=== PATIENT | male | born 1970 | race Two or more races ===

== ENCOUNTER 2016-12-13 17:24 | Inpatient (IN) | payer MEDICAID ==
[~2016-12-13] VITALS: Ht 162.6 cm; Wt 74.8 kg
[~2016-12-13 17:24] MED LIST: AMLO5TAB2 PO; ASCO500T9 PO; ATOR40TA PO; Acetaminophen PO; CLOT30CR24 TP; HYDR-3326 PO; Isosorbide Mononitrate PO; LEVO25TA9 PO; Lisinopril PO; MAG-55 PO; MAGN400O58 PO; METO100T7 PO; SEVE800T PO; Silver Sulfadiazine TP; ZINC220C8 PO; Zolpidem Tartrate PO
[2016-12-13 17:55] LABS: BASOPHILS % (AUTO) 0.5 % (0.0-2.0); EOSINOPHILS # (AUTO) 0.2 K/uL (0.0-0.7); EOSINOPHILS % (AUTO) 2.3 % (0.0-7.0); HEMATOCRIT 34.8 % (40.0-50.0); LYMPHOCYTES # (AUTO) 0.8 K/uL (0.8-4.8); LYMPHOCYTES % (AUTO) 11.1 % (20.5-51.5); MEAN CORPUSCULAR HEMOGLOBIN 29.9 uug (27.0-31.0); MEAN CORPUSCULAR HGB CONC 32 g/dL (32.0-37.0); MEAN CORPUSCULAR VOLUME 94.7 fL (82.0-92.0); MONOCYTES # (AUTO) 0.5 K/uL (0.1-1.30); MONOCYTES % (AUTO) 6.1 % (0.0-11.0); NEUTROPHILS # (AUTO) 6.1 K/uL (1.8-8.9); PLATELET COUNT (AUTO) 156 K/uL (150-450); RED BLOOD CELL COUNT(AUTO) 3.68 MIL/uL (4.70-6.10); RED CELL DISTRIBUTION WIDTH 17.9 % (11.5-14.5); WHITE BLOOD COUNT (AUTO) 7.6 K/uL (4.0-11.2)
--- NOTE | 2016-12-13 18:06 | NUR ---
PT HYPOXIC ON RA AT THE TIME OF TRAIGE, NON REBREATHER PLACED BY JEWELRY REPAIRER WHICH IMPROVED THE SAT TO 100%.TRIED TI WEEN THE PT OFF THE NON REBREATHER TO SEE HOW THE PT DOES,
[2016-12-13 18:11] LABS: CALCIUM 10.8 mg/dL (8.5-10.1)
[2016-12-13 18:14] LABS: CREATININE 8.7 mg/dL (0.6-1.3); POTASSIUM 7.2 mmol/L (3.5-5.1)
[2016-12-13 18:16] LABS: ALBUMIN 3.5 g/dL (3.4-5.0); BILIRUBIN,DIRECT 0.2 mg/dL (0.0-0.2); BILIRUBIN,TOTAL 0.6 mg/dL (0.2-1.0); TOTAL PROTEIN, SERUM 7.6 g/dL (6.4-8.2)
[2016-12-13] MEDS ORDERED: DEXTROSE 50% 50 ML DISP.SYRIN ONE (18:28)
[2016-12-13] MEDS ORDERED: SODIUM POLYSTYRENE SULFONATE 15 G/60 ML LIQUID UDC ONE (18:28)
[2016-12-13] MEDS ORDERED: INSULIN REGULAR, HUMAN 300 UNIT/3 ML VIAL ONE (18:29)
[2016-12-13] MEDS ORDERED: FUROSEMIDE 20 MG/2 ML VIAL ONE (18:29)
[2016-12-13] MEDS ORDERED: SODIUM POLYSTYRENE SULFONATE 15 G/60 ML LIQUID UDC PO ONE (18:30)
[2016-12-13] MEDS ORDERED: ALBUTEROL SULFATE 2.5 MG/3 ML NEBU NEB ONE (18:30)
[2016-12-13] MEDS ORDERED: INSULIN REGULAR, HUMAN 300 UNIT/3 ML VIAL IV ONE (18:30)
[2016-12-13] MEDS ORDERED: DEXTROSE 50% 50 ML DISP.SYRIN IV ONE (18:30)
[2016-12-13] MEDS ORDERED: FUROSEMIDE 20 MG/2 ML VIAL IVP ONE (18:30)
[2016-12-13] MEDS ORDERED: ALBUTEROL SULFATE 2.5 MG/3 ML NEBU ONE (18:33)
[2016-12-13] MEDS ORDERED: NYST50002 TP (18:57)
[2016-12-13] MEDS ORDERED: MORPHINE SULFATE 4 MG/1 ML DISP.SYRIN IV ONE (19:00)
[2016-12-13] MEDS ORDERED: CALCIUM CHLORIDE 1 GM/10 ML DISP.SYRIN IVP ONE ×2 (19:00→19:02)
[2016-12-13] MEDS ORDERED: MORPHINE SULFATE 4 MG/1 ML DISP.SYRIN ONE (19:03)
--- NOTE | 2016-12-13 19:49 | NUR ---
Pt. admitted to [facility] , under care of Dr. Gold. Dx: Hyperkalemia. Belongs List completed
[2016-12-13 19:52] VITALS: BP 155/114
--- NOTE | 2016-12-13 19:52 | NUR ---
ADMITTED PT FROM ER VIA GURNEY, AWAKE, ALERT & ORIENTED W/ PERIODS OF FORGETFULNESS. PLACED ON O2 @ 2LNC W/ O2 SAT OF 98%. HEP LOCK INTACT & PATENT ON L HAND & RFA. C-SCOPE AFIB CONTROLLED. LYDIA CATH INTACT ON L SUBCLAVIAN. AV SHUNT ON RFA NO BRUIT NOTED. REPOSITIONED W/ HOB ELEVATED.
[2016-12-13] MEDS ORDERED: [UNRECOGNIZED DRUG - OTHER] PO PRN (20:15)
[2016-12-13] MEDS ORDERED: AL HYDROX PO SCH (20:15)
[2016-12-13] MEDS ORDERED: SIMETH PO SCH (20:15)
[2016-12-13] MEDS ORDERED: MAG HYDROX PO SCH (20:15)
[2016-12-13] MEDS ORDERED: ALBUTEROL SULFATE 2.5 MG/3 ML NEBU NEB PRN (20:15)
[2016-12-13] MEDS ORDERED: ONDANSETRON 4 MG/2 ML VIAL IV PRN (20:15)
[2016-12-13] MEDS ORDERED: Medication Not On Formulary EA ([Acetaminophen] (Tylenol) 650 MG) PO PRN (20:15)
[2016-12-13] MEDS ORDERED: ACETAMINOPHEN 325 MG TABLET PO PRN (20:30)
[2016-12-13] MEDS ORDERED: MAG HYDROX/AL HYDROX/SIMETH 30 ML LIQUID UDC PO PRN (20:30)
[2016-12-13] MEDS ORDERED: ZOLPIDEM 5 MG TABLET PO PRN (20:30)
[2016-12-13] MEDS ORDERED: ATORVASTATIN 40 MG TABLET PO SCH (21:00)
[2016-12-13] MEDS ORDERED: DOCUSATE SODIUM 250 MG CAPSULE PO SCH (21:00)
[2016-12-13] MEDS: ATORVASTATIN 10 MG TABLET PO SCH (21:44)
[2016-12-13] MEDS: DOCUSATE SODIUM 100 MG CAPSULE PO SCH (21:44)
[2016-12-13] MEDS: AMLODIPINE 5 MG TABLET PO SCH (21:44)
--- NOTE | 2016-12-13 21:50 | NUR ---
HEMODIALYSIS STARTED, MONITORED V/S.
--- NOTE | 2016-12-13 23:00 | NUR ---
HEMODIALYSIS DONE. V/S STABLE.
--- NOTE | 2016-12-13 23:30 | NUR ---
ATE WELL ,SANRUBY GIVEN.
[2016-12-14] VITALS: BP 127/89
--- NOTE | 2016-12-14 01:00 | NUR ---
SLEEPING WELL. V/S STABLE.
[2016-12-14 04:00] VITALS: BP 113/66
[2016-12-14 05:27] LABS: BASOPHILS % (AUTO) 0.5 % (0.0-2.0); EOSINOPHILS # (AUTO) 0.2 K/uL (0.0-0.7); EOSINOPHILS % (AUTO) 2.2 % (0.0-7.0); HEMATOCRIT 32.5 % (40.0-50.0); HEMOGLOBIN 10.4 g/dL (14.0-18.0); LYMPHOCYTES # (AUTO) 0.6 K/uL (0.8-4.8); LYMPHOCYTES % (AUTO) 8.7 % (20.5-51.5); MEAN CORPUSCULAR HGB CONC 32 g/dL (32.0-37.0); MEAN CORPUSCULAR VOLUME 94.1 fL (82.0-92.0); MONOCYTES # (AUTO) 0.4 K/uL (0.1-1.30); MONOCYTES % (AUTO) 5.4 % (0.0-11.0); NEUTROPHILS # (AUTO) 6.1 K/uL (1.8-8.9); NEUTROPHILS % (AUTO) 83.2 % (38.5-71.5); PLATELET COUNT (AUTO) 137 K/uL (150-450); RED BLOOD CELL COUNT(AUTO) 3.45 MIL/uL (4.70-6.10); RED CELL DISTRIBUTION WIDTH 17.9 % (11.5-14.5); WHITE BLOOD COUNT (AUTO) 7.3 K/uL (4.0-11.2)
[2016-12-14 05:41] LABS: PHOSPHOROUS 6.6 mg/dL (2.5-4.9); POTASSIUM 5.9 mmol/L (3.5-5.1)
[2016-12-14 05:42] LABS: ALBUMIN 3.1 g/dL (3.4-5.0); BILIRUBIN,TOTAL 0.6 mg/dL (0.2-1.0); TOTAL PROTEIN, SERUM 6.9 g/dL (6.4-8.2)
[2016-12-14 05:44] LABS: CREATININE 7.7 mg/dL (0.6-1.3)
--- NOTE | 2016-12-14 05:55 | NUR ---
C/O GENERALIZED PAIN, MEDICATED W/ MS 2MG IVP, V/S STABLE. AM CARE DONE . REFUSED ORAL CARE. REPOSITIONED W/ HOB ELEVATED.
[2016-12-14] MEDS: MORPHINE SULFATE 2 MG/1 ML DISP.SYRIN IV PRN ×2 (05:56→22:16)
[2016-12-14] MEDS: LEVOTHYROXINE SODIUM 25 MCG TABLET PO SCH (06:27)
--- NOTE | 2016-12-14 07:15 | NUR ---
report received from Padma ALVAREZ, 48 yr old male was admitted for hyperkalemia, chf and ESRD. [facility] status. o2 at 3 liters nasal cannula. is orthopneic. saline lock right forearm and left hand. anuric. ekg sinus rhtyhm. 92/min, bp 127/60 Addendum: 12/14/16 at 0859 by BARBI STEPHENS RN Amended: Links added. Addendum: 12/14/16 at 0957 by BARBI STEPHENS RN correction to above entry. Patient is in atrial fib hr 90/min
[2016-12-14 08:00] VITALS: BP 127/95
--- NOTE | 2016-12-14 08:13 | NUR ---
medicated for c/o nausea. unable to eat breakfast Addendum: 12/14/16 at 0822 by BARBI STEPHENS RN Amended: Links added.
[2016-12-14] MEDS: SEVELAMER CARBONATE 800 MG TABLET PO SCH ×3 (08:18→18:17)
[2016-12-14] MEDS: ZINC SULFATE 220 MG CAPSULE PO SCH (08:18)
[2016-12-14] MEDS: AMLODIPINE 5 MG TABLET PO SCH ×2 (08:19→21:03)
[2016-12-14] MEDS: ISOSORBIDE MONONITRATE 60 MG TAB.SR.24H PO SCH (08:19)
[2016-12-14] MEDS: ASCORBIC ACID 500 MG TABLET PO SCH (08:19)
[2016-12-14] MEDS: METOPROLOL SUCCINATE XL 100 MG TAB.SR.24H PO SCH (08:20)
--- NOTE | 2016-12-14 08:30 | NUR ---
seen by dr jimenez. orders received. Addendum: 12/14/16 at 0959 by BARBI STEPHENS RN Amended: Links added.
[2016-12-14] MEDS ORDERED: CLOTRIMAZOLE 1% CREAM 30 GM TUBE TP SCH (09:00)
[2016-12-14] MEDS ORDERED: ISOSORBIDE MONONITRATE PO SCH (09:00)
[2016-12-14 12:00] VITALS: BP 104/26
[2016-12-14] MEDS ORDERED: NORMAL SALINE FLUSH 10 ML DISP.SYRIN IV PRN (14:15)
--- NOTE | 2016-12-14 14:46 | NUR ---
c/o abdominal bloating. restless while in bed. up and down the chair/floor sometimes on his knees. bhavani offered but refused. Addendum: 12/14/16 at 1446 by BARBI STEPHENS RN Amended: Links added.
[2016-12-14 16:00] VITALS: BP 130/96
--- NOTE | 2016-12-14 18:15 | NUR ---
seen by dr carlson. updated with patient's condition including c/o gassy abdomen. Addendum: 12/14/16 at 1815 by BARBI STEPHENS RN Amended: Links added.
--- NOTE | 2016-12-14 19:30 | NUR ---
report given to Merari Addendum: 12/14/16 at 1930 by BARBI STEPHENS RN Amended: Links added.
[2016-12-14 20:00] VITALS: BP 132/84
--- NOTE | 2016-12-14 20:00 | NUR ---
RECEIVED PT. AWAKE, ALERT & ORIENTED X3. DENIES PAIN THIS TIME. PERMA CATH INTACT ON L SUBCLAVIAN. HEP LOCK INTACT & PATENT ON RFA. ON O2 @ 2LNC W/ O2 SAT OF 97%. REPOSITIONED SELF FOR COMFORTS.
[2016-12-14] MEDS: DOCUSATE SODIUM 100 MG CAPSULE PO SCH (21:03)
[2016-12-14] MEDS: ATORVASTATIN 10 MG TABLET PO SCH (21:03)
[2016-12-14] MEDS: NORMAL SALINE FLUSH 10 ML DISP.SYRIN IV SCH (21:43)
--- NOTE | 2016-12-14 22:30 | NUR ---
UP IN CHAIR & BACK RUB GIVEN. Addendum: 12/15/16 at 0143 by FREDY ZEE RN 2229 NOTES WAS @ 2130.
[2016-12-15] VITALS: BP 120/92
--- NOTE | 2016-12-15 | NUR ---
HEMODIALYSIS DONE. HAD SNACK ,ATE WELL.
[2016-12-15] MEDS: HYDROCODONE/APAP 5-325MG TABLET PO PRN ×3 (02:23→13:11)
--- NOTE | 2016-12-15 02:25 | NUR ---
MEDICATED FOR PAIN W/ NORCO 5/325 1 TAB PO. V/S STABLE.
[2016-12-15 04:00] VITALS: BP 145/85
--- NOTE | 2016-12-15 05:00 | NUR ---
PT REMAINS SLEEPING. NOT IN ANY DISTRESS.
[2016-12-15 05:03] LABS: BASOPHILS % (AUTO) 0.4 % (0.0-2.0); EOSINOPHILS # (AUTO) 0.2 K/uL (0.0-0.7); HEMATOCRIT 30.6 % (40.0-50.0); LYMPHOCYTES # (AUTO) 0.7 K/uL (0.8-4.8); LYMPHOCYTES % (AUTO) 10.6 % (20.5-51.5); MEAN CORPUSCULAR HEMOGLOBIN 30.6 uug (27.0-31.0); MEAN CORPUSCULAR HGB CONC 33 g/dL (32.0-37.0); MEAN CORPUSCULAR VOLUME 93.6 fL (82.0-92.0); MONOCYTES # (AUTO) 0.4 K/uL (0.1-1.30); MONOCYTES % (AUTO) 6.5 % (0.0-11.0); NEUTROPHILS # (AUTO) 5.4 K/uL (1.8-8.9); NEUTROPHILS % (AUTO) 79.5 % (38.5-71.5); PLATELET COUNT (AUTO) 120 K/uL (150-450); RED BLOOD CELL COUNT(AUTO) 3.27 MIL/uL (4.70-6.10); RED CELL DISTRIBUTION WIDTH 18.1 % (11.5-14.5); WHITE BLOOD COUNT (AUTO) 6.7 K/uL (4.0-11.2)
[2016-12-15 05:29] LABS: ALBUMIN 3.1 g/dL (3.4-5.0); BILIRUBIN,TOTAL 0.6 mg/dL (0.2-1.0); CALCIUM 9.8 mg/dL (8.5-10.1); MAGNESIUM 2.1 mg/dL (1.8-2.4); PHOSPHOROUS 6.5 mg/dL (2.5-4.9); POTASSIUM 5.8 mmol/L (3.5-5.1); TOTAL PROTEIN, SERUM 6.8 g/dL (6.4-8.2)
[2016-12-15 05:33] LABS: CREATININE 7.5 mg/dL (0.6-1.3)
[2016-12-15] MEDS: NORMAL SALINE FLUSH 10 ML DISP.SYRIN IV SCH ×3 (05:50→21:06)
[2016-12-15] MEDS: LEVOTHYROXINE SODIUM 25 MCG TABLET PO SCH (06:35)
[2016-12-15] MEDS: PANTOPRAZOLE SODIUM 40 MG TABLET.DR PO SCH (06:35)
[2016-12-15] MEDS: SEVELAMER CARBONATE 800 MG TABLET PO SCH ×3 (07:53→17:37)
[2016-12-15 08:00] VITALS: BP 131/89
[2016-12-15] MEDS: ASCORBIC ACID 500 MG TABLET PO SCH (08:01)
[2016-12-15] MEDS: METOPROLOL SUCCINATE XL 100 MG TAB.SR.24H PO SCH (08:02)
[2016-12-15] MEDS: AMLODIPINE 5 MG TABLET PO SCH ×2 (08:02→21:05)
[2016-12-15] MEDS: ISOSORBIDE MONONITRATE 60 MG TAB.SR.24H PO SCH (08:02)
[2016-12-15] MEDS: ZINC SULFATE 220 MG CAPSULE PO SCH (08:02)
[2016-12-15] MEDS: ASPIRIN EC 325 MG TABLET.DR PO SCH (11:55)
[2016-12-15 12:00] VITALS: BP 124/85
[2016-12-15 16:00] VITALS: BP 132/82
[2016-12-15] MEDS: MORPHINE SULFATE 2 MG/1 ML DISP.SYRIN IV PRN (17:05)
--- NOTE | 2016-12-15 17:10 | NUR ---
PT C/O PAIN ON HIS PENILE AREA, REFUSED TO SHOW IT BUT REQUESTING FOR A PAIN MEDICATION. PT IS INSISTING VERY MUCH THEREFORE MEDICATED WITH MORPHINE 2MG SLOW IVP A STANDING ORDER. PT REALLY REFUSED TO SHOW IT , NOTIFIED MEAT [employer]ODUCTS DEMONSTRATOR AND MADE AWARE.
[2016-12-15 20:00] VITALS: BP 138/79
[2016-12-15] MEDS: ATORVASTATIN 10 MG TABLET PO SCH (21:05)
[2016-12-15] MEDS: DOCUSATE SODIUM 100 MG CAPSULE PO SCH (21:05)
[2016-12-16 00:01] VITALS: BP 132/90
[2016-12-16 04:00] VITALS: BP 137/103
[2016-12-16 05:10] LABS: BASOPHILS % (AUTO) 0.6 % (0.0-2.0); EOSINOPHILS # (AUTO) 0.2 K/uL (0.0-0.7); EOSINOPHILS % (AUTO) 3.2 % (0.0-7.0); HEMATOCRIT 30.8 % (40.0-50.0); HEMOGLOBIN 9.9 g/dL (14.0-18.0); LYMPHOCYTES # (AUTO) 0.8 K/uL (0.8-4.8); LYMPHOCYTES % (AUTO) 11.6 % (20.5-51.5); MEAN CORPUSCULAR HEMOGLOBIN 30.5 uug (27.0-31.0); MEAN CORPUSCULAR HGB CONC 32 g/dL (32.0-37.0); MONOCYTES # (AUTO) 0.5 K/uL (0.1-1.30); MONOCYTES % (AUTO) 7.5 % (0.0-11.0); NEUTROPHILS # (AUTO) 5.3 K/uL (1.8-8.9); NEUTROPHILS % (AUTO) 77.1 % (38.5-71.5); PLATELET COUNT (AUTO) 110 K/uL (150-450); RED BLOOD CELL COUNT(AUTO) 3.24 MIL/uL (4.70-6.10); RED CELL DISTRIBUTION WIDTH 18.1 % (11.5-14.5); WHITE BLOOD COUNT (AUTO) 6.8 K/uL (4.0-11.2)
[2016-12-16 05:19] LABS: CALCIUM 9.9 mg/dL (8.5-10.1); MAGNESIUM 2.2 mg/dL (1.8-2.4); PHOSPHOROUS 7.6 mg/dL (2.5-4.9)
[2016-12-16 05:35] LABS: CREATININE 9.3 mg/dL (0.6-1.3); POTASSIUM 6.5 mmol/L (3.5-5.1)
[2016-12-16] MEDS: LEVOTHYROXINE SODIUM 25 MCG TABLET PO SCH (06:20)
[2016-12-16] MEDS: PANTOPRAZOLE SODIUM 40 MG TABLET.DR PO SCH (06:20)
[2016-12-16] MEDS: NORMAL SALINE FLUSH 10 ML DISP.SYRIN IV SCH ×3 (06:21→20:24)
[2016-12-16] MEDS: ZINC SULFATE 220 MG CAPSULE PO SCH (07:53)
[2016-12-16] MEDS: ASCORBIC ACID 500 MG TABLET PO SCH (07:53)
[2016-12-16] MEDS: ASPIRIN EC 325 MG TABLET.DR PO SCH (07:53)
[2016-12-16] MEDS: SEVELAMER CARBONATE 800 MG TABLET PO SCH ×3 (07:54→17:44)
[2016-12-16 08:00] VITALS: BP 148/102
[2016-12-16] MEDS: ISOSORBIDE MONONITRATE 60 MG TAB.SR.24H PO SCH ×2 (08:00→08:03)
[2016-12-16] MEDS: AMLODIPINE 5 MG TABLET PO SCH ×3 (08:01→20:24)
[2016-12-16] MEDS: METOPROLOL SUCCINATE XL 100 MG TAB.SR.24H PO SCH ×2 (08:01→08:04)
--- NOTE | 2016-12-16 08:06 | NUR ---
AM blood pressure meds held. reel tender here at the bedside for dialysis treatment. Dr. Rubio also here to see pt. Full report given. New orders received.
--- NOTE | 2016-12-16 11:15 | NUR ---
Dialysis completed. 3.5L of hemodialysis fluid removed from the pt. Pt stable and nad noted upon completion of dialysis treatment.
[2016-12-16 12:00] VITALS: BP 123/84
[2016-12-16] MEDS: MORPHINE SULFATE 2 MG/1 ML DISP.SYRIN IV PRN ×2 (14:48→22:04)
[2016-12-16 16:00] VITALS: BP 134/103
--- NOTE | 2016-12-16 18:48 | NUR ---
End of shift: Pt resting in bed awake and alert watching television. awake overnight monitor and alarms working properly wnl. Pt on 2L NC. All needs attended. Pt stable and nad noted.
[2016-12-16 20:00] VITALS: BP 138/93
[2016-12-16] MEDS: ATORVASTATIN 10 MG TABLET PO SCH (20:24)
[2016-12-16] MEDS: DOCUSATE SODIUM 100 MG CAPSULE PO SCH (20:24)
--- NOTE | 2016-12-16 22:00 | NUR ---
RECEIVED PATIENT FROM CCU A TRANSFER. PATIENT IS A/O X4. HEBREW SPEAKING BUT ABLE TO MAKE SIMPLE NEEDS KNOWN. VSS UPON TRANSFER TO THE FLOOR. H/L INTACT AND PATENT. PATIENT C/O PAIN, GENERALIZED 10/10. PATIENT GIVEN MORPHINE 2MG IV PER RN. ORIENTED TO ROOM AND CALL LIGHT. CALL LIGHT IN REACH. ALL NEEDS ATTENDED. WILL CONTINUE TO MONITOR.
[2016-12-17 00:13] VITALS: BP 142/98
[2016-12-17] MEDS: MORPHINE SULFATE 2 MG/1 ML DISP.SYRIN IV PRN ×2 (03:59→13:59)
[2016-12-17 04:00] VITALS: BP 134/98
[2016-12-17] MEDS: NORMAL SALINE FLUSH 10 ML DISP.SYRIN IV SCH ×2 (06:39→14:06)
[2016-12-17] MEDS: LEVOTHYROXINE SODIUM 25 MCG TABLET PO SCH (06:40)
[2016-12-17] MEDS: PANTOPRAZOLE SODIUM 40 MG TABLET.DR PO SCH (06:40)
--- NOTE | 2016-12-17 07:14 | NUR ---
PATIENT ASLEEP IN BED. SLEPT WELL THROUGHOUT THE NIGHT. ON TELE A-FIB WITH A BBB. VSS. CALL LIGHT IN REACH. ALL NEEDS ATTENDED. WILL CONTINUE TO MONITOR.
[2016-12-17 08:00] VITALS: BP 137/96
[2016-12-17] MEDS: ASCORBIC ACID 500 MG TABLET PO SCH (09:19)
[2016-12-17] MEDS: METOPROLOL SUCCINATE XL 100 MG TAB.SR.24H PO SCH (09:19)
[2016-12-17] MEDS: SEVELAMER CARBONATE 800 MG TABLET PO SCH ×3 (09:19→16:44)
[2016-12-17] MEDS: ISOSORBIDE MONONITRATE 60 MG TAB.SR.24H PO SCH (09:19)
[2016-12-17] MEDS: ASPIRIN EC 325 MG TABLET.DR PO SCH (09:19)
[2016-12-17] MEDS: AMLODIPINE 5 MG TABLET PO SCH (09:19)
[2016-12-17] MEDS: ZINC SULFATE 220 MG CAPSULE PO SCH (09:21)
[2016-12-17 10:18] LABS: BASOPHILS % (AUTO) 0.7 % (0.0-2.0); EOSINOPHILS # (AUTO) 0.2 K/uL (0.0-0.7); EOSINOPHILS % (AUTO) 3.5 % (0.0-7.0); HEMATOCRIT 32.6 % (40.0-50.0); HEMOGLOBIN 10.8 g/dL (14.0-18.0); LYMPHOCYTES # (AUTO) 0.7 K/uL (0.8-4.8); LYMPHOCYTES % (AUTO) 10.2 % (20.5-51.5); MEAN CORPUSCULAR HEMOGLOBIN 31.1 uug (27.0-31.0); MEAN CORPUSCULAR HGB CONC 33 g/dL (32.0-37.0); MEAN CORPUSCULAR VOLUME 93.9 fL (82.0-92.0); MONOCYTES # (AUTO) 0.3 K/uL (0.1-1.30); MONOCYTES % (AUTO) 5.3 % (0.0-11.0); NEUTROPHILS # (AUTO) 5.3 K/uL (1.8-8.9); NEUTROPHILS % (AUTO) 80.3 % (38.5-71.5); PLATELET COUNT (AUTO) 111 K/uL (150-450); RED BLOOD CELL COUNT(AUTO) 3.47 MIL/uL (4.70-6.10); RED CELL DISTRIBUTION WIDTH 17.4 % (11.5-14.5); WHITE BLOOD COUNT (AUTO) 6.5 K/uL (4.0-11.2)
[2016-12-17 10:34] LABS: ALBUMIN 3.1 g/dL (3.4-5.0); BILIRUBIN,TOTAL 0.6 mg/dL (0.2-1.0); CALCIUM 9.8 mg/dL (8.5-10.1); MAGNESIUM 2.2 mg/dL (1.8-2.4); TOTAL PROTEIN, SERUM 6.9 g/dL (6.4-8.2)
[2016-12-17 10:39] LABS: CREATININE 9.8 mg/dL (0.6-1.3); PHOSPHOROUS 8.4 mg/dL (2.5-4.9)
--- NOTE | 2016-12-17 11:00 | NUR ---
CRITICAL LAB VALUES- received call from Jose Sutherland from lab. patient with critical labs Creatinine 9.8, Phosphorous 8.4, Dr Zuniga aware, no new orders at this time .
[2016-12-17] MEDS: SODIUM POLYSTYRENE SULFONATE 15 G/60 ML LIQUID UDC PO ONE ×2 (12:00→12:19)
[2016-12-17 12:03] VITALS: BP 121/86
--- NOTE | 2016-12-17 12:34 | NUR ---
Patient refuses Kayexelate at this time, patient verbalizing "Do not bother opening it, I will not take it.I know what it tastes like, I won't take it". attempted to redirect patient and educate on medication and need for med, current lab values, elevated potassium level. patient continues to refuse at this time will continue to attempt to administer. unable to redirect patient at this time
--- NOTE | 2016-12-17 14:00 | NUR ---
D/C INSTRUCTION REGARDING PATIENT WILL D/C BACK TO [facility] WITH ORDERED INFORM TO PATIENT ,VERBALIZES UNDERSTAND AND SIGNS D/C SHEET HL WAS DISCONTINUE PRIOR D/C TODAY CONDITION STABLE PAIN UNDER CONTROL
--- NOTE | 2016-12-17 14:10 | NUR ---
patient refused kayexelate, verbalized "not to worry ". states he will be having dialysis tomorrow.
--- NOTE | 2016-12-17 15:00 | NUR ---
REPORT GAVE TO NURSE BOLAND AT SNF [facility]IA [facility]
[2016-12-17 16:02] VITALS: BP 123/94
--- NOTE | 2016-12-17 18:19 | NUR ---
Dr Gold aware patient refusing Kayexelate, continue with discharge.
--- NOTE | 2016-12-17 18:40 | NUR ---
D/C TO [facility] CONDITION STABLE
== END 2016-12-17 18:40 | DRG 194 ==
LOC: ER 17:24 → CCU 19:31 → TELE 12-16 21:34
PROVIDERS: ADMIT Internal Medicine; ATTEND Internal Medicine
PROC: 5A1D60Z (ICD-10-PCS; principal; 2016-12-13)
DX: I13.2 Hypertensive heart and chronic kidney disease with heart failure and with stage 5 chronic kidney disease, or end stage renal disease (principal); I21.4 Non-ST elevation (NSTEMI) myocardial infarction; J96.01 Acute respiratory failure with hypoxia; N18.6 End stage renal disease; D68.59 Other primary thrombophilia; E11.22 Type 2 diabetes mellitus with diabetic chronic kidney disease; I42.9 Cardiomyopathy, unspecified; E87.5 Hyperkalemia; I50.43 Acute on chronic combined systolic (congestive) and diastolic (congestive) heart failure; Z99.2 Dependence on renal dialysis; D64.9 Anemia, unspecified; E78.5 Hyperlipidemia, unspecified; I25.2 Old myocardial infarction; I48.2 Chronic atrial fibrillation; K56.41 Fecal impaction; Z59.0 Homelessness; Z91.14 Patient's other noncompliance with medication regimen; E05.90 Thyrotoxicosis, unspecified without thyrotoxic crisis or storm
CPT/HCPCS: 36415; 70030-TC; 71010; 74000; 83690; 83735; 84100; 85025; 85730; 90937; 93005; A4663; J1815; J1940; J2270; J2405; J3490

== ENCOUNTER 2017-04-04 14:57 | Emergency (ER) | payer MEDICAID ==
[~2017-04-04] VITALS: Ht 167.6 cm; Wt 68.0 kg
[~2017-04-04 14:57] MED LIST changes: -CLOT30CR24 TP; -SEVE800T PO; +SEVE800T7 PO; -Silver Sulfadiazine TP
[2017-04-04] MEDS ORDERED: NOREPINEPHRINE BITARTRATE 4 MG/4 ML VIAL IV ONE (15:37)
[2017-04-04] MEDS ORDERED: CALCIUM CHLORIDE 1 GM/10 ML DISP.SYRIN IVP ONE (15:41)
--- NOTE | 2017-04-04 15:49 | NUR ---
UNSUCCESSFUL RESUSCITATION. PRONOUNCED BY DR MARTINEZ AT 15:40PM.
--- NOTE | 2017-04-04 15:56 | NUR ---
At 3:45pm, REAL called patient's brother Michele Zimmerman at [phone] (phone number listed on the facesheet provided by paramedics that brought patient in). No response, REAL left a voicemail asking him to call the hospital. REAL then called [facility] (where patient resided) and spoke with Felt Machine Mechanic Maria Fernanda, asking her for any other contact information for patient. Maria Fernanda provided REAL with the phone number [phone]. REAL attempted calling this second number x 2, but both times the phone # rang a busy signal.
--- NOTE | 2017-04-04 15:57 | NUR ---
ONE [facility] CALLED AND REF# [id number] AND SPOKE TO JOSE (rep).
--- NOTE | 2017-04-04 16:00 | NUR ---
CODE BLUE CALLED APPROX 1500. CPR WAS PERFORMED BY RT'S WITH INTUBATION ASSIST. UNSUCCESSFUL RESUSCITATION CODE CALLED [id number].
--- NOTE | 2017-04-04 16:04 | NUR ---
at 4:05pm, REAL called patient's brother Michele Zimmerman again at [phone]. No response again, REAL left another voicemail message asking Michele to call [facility] back as soon as possible.
--- NOTE | 2017-04-04 16:16 | NUR ---
[facility] CALLED AND NOTIFED THEM OF PT'S .
--- NOTE | 2017-04-04 16:19 | NUR ---
Per Dr. Calix's request, REAL called Dr. Newton's office [phone] Calix to be able to speak with Dr. Durán regarding the patient. REAL spoke with Sofía at the doctor's office, who stated that the doctor was with a patient at the moment. REAL asked Sofía to have the doctor call Dr. Calix at [phone] as soon as possible. Sofía stated that she would pass the message on to the doctor. Dr. Calix and ANTONIO Jolley informed.
--- NOTE | 2017-04-04 16:38 | NUR ---
REAL and ANTONIO Rodas accessed patient's cell phone, which was with him when he was brought in to the Emergency Department. Cell phone was locked, but there were 4 missed calls on the phone screen from the number [phone]. REAL attempted to call this number from a land line phone in the ED in an attempt to see if this person could assist with locating the patient's brother, but there was no answer. No voicemail message left.
--- NOTE | 2017-04-04 16:50 | NUR ---
DR MARTINEZ SPOKE TO DR BUSH(PMD).
--- NOTE | 2017-04-04 16:55 | NUR ---
AWAITING PT'S FAMILY TO CALL.
--- NOTE | 2017-04-04 17:56 | NUR ---
PT'S FAMILY NEVER CALLED BACK. OFFICE SWEEPER NOTIFIED. SUPERVISOUR TAKEN PT TO [facility]. ALL BELONGING SENT W/ PT.
== END 2017-04-04 18:03 | disposition expired ==
LOC: ER 15:02
DX: I46.9 Cardiac arrest, cause unspecified (principal); I12.0 Hypertensive chronic kidney disease with stage 5 chronic kidney disease or end stage renal disease; N18.6 End stage renal disease; E87.5 Hyperkalemia; I48.91 Unspecified atrial fibrillation; I42.9 Cardiomyopathy, unspecified; E78.5 Hyperlipidemia, unspecified; D63.1 Anemia in chronic kidney disease; E05.90 Thyrotoxicosis, unspecified without thyrotoxic crisis or storm; Z79.899 Other long term (current) drug therapy; Z99.2 Dependence on renal dialysis
CPT/HCPCS: 92950; J3490